=== PATIENT | female | born 1940 | race Caucasian/White ===

== ENCOUNTER 2021-10-12 15:30 | Emergency (ER) | payer MEDICARE, SELFPAY ==
--- NOTE | ~2021-10-12 | XR_ITS ---
EXAMINATION: [id number] EXAM DATE: 10/12/2021 16:17 INDICATION: Initial encounter following injury, with pain of the right ribs. TECHNIQUE: Frontal projection of the upper right ribs, frontal projection of the lower right ribs, ob lique projection of the right ribs, frontal chest x-ray(s) for interpretation. There is no prior miladys dy for comparison. FINDINGS: Slight coarse ulceration in the right 5th rib anterolaterally, possible nondisplaced acute fracture. There is no soft tissue abnormality seen. Lungs are hyperinflated. There is cardiomegaly. No confluent consolidation, pneumothorax or pleural effusion suspected. Moderate lumbar levoscoliosi s. IMPRESSION: Possible nondisplaced acute right 5th rib fracture anterolaterally. No pneumothorax. Reviewed, dictated and finalized at location B. [facility]
[2021-10-12 15:42] VITALS: BP 153/62; PULSE 63; RESP 18; TEMP 36.1; O2SAT 95
--- NOTE | 2021-10-12 16:15 | ED.GENADULT ---
HPI - General Adult General Chief complaint: Fall Stated complaint: fall,swelling in feet and ankles Time Seen by Provider: 10/12/21 15:54 Source: patient and RN notes reviewed Mode of arrival: ambulatory Limitations: no limitations History of Present Illness HPI narrative: Patient presents today complaining of right posterior rib pain. She fell 5 days ago and struck her ribs on the seat of a hard chair. Denies any additional injury from the fall. Denies head injury or loss of consciousness. Denies shortness of breath. Patient has been wearing a binder, especially at night to help her sleep. She has also been taking ibuprofen with mild relief. She currently rates her pain 5/10. Pain increases with movement and laughing. Pain does not increase with deep breath. Patient is also concerned of bilateral ankle and foot swelling that has occurred over the last 1 to 2 days. States she does not typically have any swelling in her lower extremities. Denies pain. States she has been pretty sedentary since her fall and has been sitting in a chair/recliner in her home, and even sleeping in it. Denies history of CHF. MD complaint: Rib pain Related Data Home Medications Medication Instructions Recorded Confirmed No Home Medications 05/25/21 10/12/21 Allergies Allergy/AdvReac Type Severity Reaction Status Date / Time No Known Allergies Allergy Verified 10/12/21 15:52 Review of Systems Review of Systems: CONSTITUTIONAL: Denies body aches, fever, chills, or sweats. EYES: Denies visual changes, redness, or discharge. ENT: Denies rhinorrhea, congestion, sore throat, or otalgia. CARDIOVASCULAR: Denies chest pain, palpitations, or edema. RESPIRATORY: Denies cough or dyspnea. GASTROINTESTINAL: Denies abdominal pain, nausea, vomiting, or diarrhea. GENITOURINARY: Denies dysuria or hematuria. SKIN: Denies rash, itching, or wounds. MUSCULOSKELETAL: Denies back pain, joint pain, or myalgia. Right posterior rib pain, bilateral foot edema NEUROLOGIC: Denies headache, numbness, tingling, or weakness. PSYCH: Denies depression or anxiety. [facility] Social History Social History (Updated 05/25/21 @ 13:54 by Gladis Kennedy) Smoking status: Never smoker Second hand tobacco smoke exposure: No Alcohol intake: current Drinks per week: 7 Substance use: never Substance use type: does not use Gender identity (if verbalized by the patient): Female Sexual Orientation (if Verbalized by the Patient): Straight or Heterosexual Comments At time of signature, I have reviewed and agree with nursing past medical, surgical, social and family history unless otherwise noted. Please see nursing chart for further information. There is no relevant family history pertinent to the presenting complaint Exam Narrative: GENERAL: Well-appearing, well-nourished, and in no acute distress. HEAD: Normocephalic, atraumatic. EYES: EOMI. No redness or drainage. Conjunctivae normal. ENT: Mucous membranes pink and moist. NECK: Normal AROM. CHEST: No respiratory distress. Clear to auscultation. Tenderness to the right posterior lower ribs. No edema, ecchymosis, erythema, crepitus noted. HEART: Regular rate and rhythm. No murmur appreciated. Normal peripheral pulses. ABDOMEN: Soft, nontender, nondistended, normal active bowel sounds. MUSCULOSKELETAL: No bony tenderness. EXTREMITIES: Normal range of motion. 2+ pitting edema of the bilateral ankles and feet. Distal sensation intact. Capillary refill normal. Pedal pulses strong and normal. Full range of motion of the ankles and all toes. Color normal bilaterally. SKIN: Warm, dry, no rash. Capillary refill normal. Normal skin turgor. NEURO: No focal deficits. Alert and oriented x3. Gait steady. PSYCH: Normal affect. No signs of depression or anxiety. Course Course Emergency Course: Patient does not have any pain or rib tenderness anterolaterally so unlikely that she has described rib fracture in
== END 2021-10-12 16:38 | disposition home or self-care (01) ==
PROVIDERS: Emergency Provider Nurse Practitioner
DX: R60.0 Localized edema (principal); S20.211A Contusion of right front wall of thorax, initial encounter; W19.XXXA Unspecified fall, initial encounter
CPT/HCPCS: 71101; 99213; G0463